=== PATIENT | female | born 1995 | race Two or more races ===

== ENCOUNTER 2021-03-20 11:43 | Emergency (ER) | payer BC ==
[~2021-03-20] VITALS: Ht 162.6 cm; Wt 86.0 kg
[2021-03-20 13:26] VITALS: BP 132/79
[2021-03-20] MEDS ORDERED: CIPR250T30 PO (15:36)
--- NOTE | 2021-03-20 15:36 | ED.ADGEN ---
Past Medical History Past Surgical History: Other Additional Past Surgical Histo: DENTAL SX General Adult EDM: Chief Complaint: ABRASION HPI: HPI: Patient is 25-year-old previously healthy female who presents to the emergency room requesting a tetanus shot. Last night patient stepped on a sandra nail and had her leg scraped by the board it was on. She is concerned because she has not had tetanus shot in quite some time. She denies any swelling or signs of infection at this time. She denies any pain. She has no other complaints. She states that she does not believe there is any foreign body in her foot. Review of Systems: Review of Systems: Complete ROS is negative unless otherwise documented in HPI Current Medications: Current Medications Medications (Trade) Dose Ordered Sig/Anthony Start Time Stop Time Status Last Admin Dose Admin Diphtheria/ Tetanus/Acell Pertussis (ADACEL TDap SYRINGE) 0.5 ml ONCE ONCE 03/20/21 15:45 03/20/21 15:57 DC 03/20/21 15:55 0.5 ML Allergies: Allergies: Allergies Coded Allergies Type Severity Reaction Last Updated Verified No Known Drug Allergies 03/20/21 No Physical Exam: PE: General: Awake, alert, NAD. Well Nourished, well hydrated. Cooperative HEENT: Atraumatic, EOMI, PERRL, airway patent, moist oral mucosa Neck: Supple, trachea midline Respiratory: CTA bilaterally, normal effort, no wheezing/crackles CV: RRR, no murmur, cap refill <2 GI: Soft, nondistended, nontender, no masses MSK: No obvious deformities Skin: Warm, dry. Right lower extremity: 5 cm abrasion to the right lateral calf, small pinpoint wound to the bottom of the right foot. No surrounding erythema or swelling Neuro: A&O x3, speech NL, sensory and motor grossly intact, no focal deficits Psych: Normal affect, normal mood, not suicidal or homicidal Current Patient Data: Vital Signs: Vital Signs Date Time Temp Pulse Resp B/P (MAP) Pulse Ox O2 Delivery O2 Flow Rate FiO2 03/20/21 13:26 98.1 77 18 132/79 99 Room Air 98.1 EKG: EKG: [] Heart Score: C/O Chest Pain: N/A Risk Factors: Risk Factors: DM, Current or recent (<one month) smoker, HTN, HLP, family history of CAD, obesity. Risk Scores: Score 0 - 3: 2.5% MACE over next 6 weeks - Discharge Home Score 4 - 6: 20.3% MACE over next 6 weeks - Admit for Clinical Observation Score 7 - 10: 72.7% MACE over next 6 weeks - Early Invasive Strategies Radiology/Procedures: Radiology/Procedures: [] Course & Med Decision Making: Course & Med Decision Making Pertinent Labs and Imaging studies reviewed. (See chart for details) Patient is 25-year-old female who presents to the emergency room complaining of stepping on a nail. Wounds appear clean at this time. Tetanus was updated. Patient will be placed on ciprofloxacin. We discussed signs and symptoms of infection. Patient's test results and vitals while in the ED were fully reviewed and discussed with the patient. Patient is stable and at this time does not need admission to the hospital. We have discussed strict return precautions and the importance of following up with their Primary Care Physician. Patient stated understanding and was given an opportunity to ask any questions. Patient is in agreement with plan. Scott Disclaimer: Scott Disclaimer: This electronic medical record was generated, in whole or in part, using a voice recognition dictation system. Departure Departure Impression: Primary Impression: Abrasion of leg Additional Impression: Puncture wound of foot Disposition: HOME / SELF CARE / HOMELESS Condition: STABLE Referrals: UNKNOWN PCP NAME (PCP) Patient Instructions: Puncture Wound Scripts Ciprofloxacin Hcl (CIPRO) 250 Mg Tablet 1 TAB PO BID for infection, #14 TAB Prov: SHIRA MCCRAY MD 03/20/21 Problem Qualifiers SHIRA MCCRAY MD Mar 20, 2021 15:36
[2021-03-20] MEDS ORDERED: DIPH,PERTUSS(ACELL),TET VAC/PF 0.5 ML SYRINGE. VAX IM ONE (15:45)
== END 2021-03-20 15:57 | disposition home or self-care (01) ==
LOC: ER 11:43
DX: S80.812A Abrasion, left lower leg, initial encounter (principal); S91.332A Puncture wound without foreign body, left foot, initial encounter; W22.8XXA Striking against or struck by other objects, initial encounter; Y93.89 Activity, other specified; Y92.89 Other specified places as the place of occurrence of the external cause; Y99.8 Other external cause status
CPT/HCPCS: 90471; 90715; 99283